=== PATIENT | male | born 1990 | race Caucasian/White ===

== ENCOUNTER 2021-04-09 02:09 | Inpatient (IN) ==
[2021-04-09] MEDS ORDERED: DIPH/TET/ACEL PERT BOOSTER VACCINE 0.5 ML VIAL IM ONE (04:17)
[2021-04-09] MEDS ORDERED: PIPERACILLIN/TAZOBACTAM 3,375 MG in SODIUM CHLORIDE 0.9% 100 ML IV STA (04:17)
[2021-04-09] MEDS ORDERED: SODIUM CHLORIDE 0.9% 1,000 ML IV STA (04:19)
[2021-04-09] MEDS ORDERED: ACETAMINOPHEN 325 MG TABLET PO PRN (05:26)
[2021-04-09] MEDS ORDERED: ZALEPLON 5 MG CAPSULE PO PRN (05:26)
[2021-04-09] MEDS ORDERED: DEXTROSE 50% 25 GM/50 ML VIAL IV PRN (05:26)
[2021-04-09] MEDS ORDERED: hydrALAZINE 20 MG/1 ML VIAL IV PRN (05:26)
[2021-04-09] MEDS ORDERED: diphenhydrAMINE CAP 25 MG CAPSULE PO PRN (05:26)
[2021-04-09] MEDS ORDERED: ONDANSETRON 4 MG/2 ML VIAL IV PRN (05:26)
[2021-04-09] MEDS ORDERED: NICOTINE 21 MG/24 HR PATCH TRANSDERM PRN (05:26)
[2021-04-09] MEDS ORDERED: guaiFENesin/DM ER 600-30 MG TABLET PO PRN (05:26)
[2021-04-09] MEDS ORDERED: GLUCAGON 1 MG VIAL IM PRN (05:26)
[2021-04-09] MEDS ORDERED: DEXTROSE 5% NACL 0.9% 1,000 ML IV SCH (05:30)
[2021-04-09 08:05] LABS: Basophils % 0.3 % (0.0-0.8); Eosinophils # 0.3 10*3/uL (0.0-0.87); Eosinophils % 2.6 % (0.00-10.9); Hematocrit 36.6 VOL% (42.0-52.0); Immature Granulocytes % 0.4 %; Immature Granulocytes Absolute 0.04 #; Lymphocytes # 1.4 10*3/uL (1.4-4.0); Lymphocytes % 13.3 % (21.2-54.2); Mean Corpuscular HGB Conc 32.8 GM/DL (32-36); Mean Corpuscular Volume 88.2 FL (87-102); Monocytes % 7.3 % (1.7-12.7); Neutrophils % 76.1 % (38.7-73.9); Platelet Count 248 T/CUMM (130-400); Red Blood Count 4.15 MC/CUMM (3.8-5.5); Red Cell Distribution Width 12.3 % (9.3-17.3); White Blood Count 10.7 T/CUMM (4-12)
[2021-04-09 08:24] LABS: Albumin 3.6 G/DL (3.4-5.0); Bilirubin,Total 0.5 MG/DL (0.20-1.00); Calcium 9.1 MG/DL (8.5-10.1); Osmolality,Calculated 264.4 MOS/KG (273-304); Potassium 3.7 MMOL/L (3.5-5.1); Total Protein 8.4 G/DL (6.4-8.2)
[2021-04-09 08:43] LABS: Barbiturates Screen,Urine Negative (Negative); Benzodiazepines Screen,Urine Negative (Negative); Cannabinoid Screen,Urine Positive (Negative); Opiate Screen,Urine Negative (Negative); Phencyclidine Screen,Urine Negative (Negative)
[2021-04-09] MEDS: MORPHINE 2 MG/1 ML SYRINGE IV PRN ×3 (09:00→20:33)
[2021-04-09] MEDS: CLINDAMYCIN INJ 600 MG/50 ML PREMIX IV SCH ×3 (09:55→23:15)
[2021-04-09] MEDS: HEPARIN 5,000 UNIT/1 ML VIAL SUBCUT SCH ×2 (09:55→22:00)
[2021-04-09] MEDS ORDERED: LIDOCAINE 1%/EPI INJ 20 ML VIAL ONE (10:25)
[2021-04-09] MEDS ORDERED: BUPIVACAINE MPF 0.25% 30 ML VIAL ONE (10:25)
[2021-04-09] MEDS ORDERED: fentaNYL 100 MCG/2 ML VIAL ONE (10:31)
[2021-04-09] MEDS ORDERED: LIDOCAINE 2% 5 ML VIAL ONE (10:31)
[2021-04-09] MEDS ORDERED: ONDANSETRON 4 MG/2 ML VIAL ONE ×2 (10:31→11:31)
[2021-04-09] MEDS ORDERED: propofoL 200 MG/20 ML VIAL IV ONE (10:31)
[2021-04-09] MEDS ORDERED: MIDAZOLAM 2 MG/2 ML VIAL ONE (10:31)
[2021-04-09] MEDS: PANTOPRAZOLE 40 MG TABLET PO SCH (10:37)
[2021-04-09] MEDS ORDERED: LACTATED RINGERS 1,000 ML IV SCH (11:00)
[2021-04-09] MEDS ORDERED: SEVOFLURANE 1 UNIT/15 MINUTE INH ONE (11:23)
[2021-04-09] MEDS: SODIUM CHLORIDE 0.9% 1,000 ML IV SCH (15:05)
[2021-04-10] MEDS: SODIUM CHLORIDE 0.9% 1,000 ML IV SCH ×2 (01:14→11:01)
[2021-04-10] MEDS: CLINDAMYCIN INJ 600 MG/50 ML PREMIX IV SCH ×2 (03:08→08:40)
[2021-04-10] MEDS: PANTOPRAZOLE 40 MG TABLET PO SCH (08:41)
[2021-04-10] MEDS: HEPARIN 5,000 UNIT/1 ML VIAL SUBCUT SCH (08:41)
[2021-04-10 12:13] VITALS: BP 100/57
== END 2021-04-10 12:57 | disposition home or self-care (01) | DRG 603 ==
LOC: SUATTDRO → N.ED 02:09 → SUATTDRO 05:26 → N.EDINP 05:26 → N.3E 14:07
PROVIDERS: ADMIT Internal Medicine; ATTEND Internal Medicine